=== PATIENT | female | born 1965 | race Caucasian/White ===

== ENCOUNTER → 2017-01-30 | Outpatient (CLI) | payer BC ==
[~2017-01-30] MED LIST: FISHOIL PO; flaxseed PO; vit b complex PO
[2017-01-30 16:23] LABS: THYROID STIMULATING HORMONE 1.56 uIu/ml (0.300-4.500)
== END | disposition home or self-care (01) ==
LOC: C.LAB1850 14:32
PROVIDERS: ATTEND Obstetrics & Gynecology
DX: R63.5 Abnormal weight gain (principal)

== ENCOUNTER → 2017-01-30 | Outpatient (CLI) | payer BC | END | disposition home or self-care (01) | LOC: C.PAPS 09:55 | PROVIDERS: ATTEND Obstetrics & Gynecology | DX: Z01.419 Encounter for gynecological examination (general) (routine) without abnormal findings (principal); Z11.51 Encounter for screening for human papillomavirus (HPV) ==